=== PATIENT | male | born 1995 | race African-American/Black ===

== ENCOUNTER 2018-02-27 13:46 | Emergency (ER) | payer MEDICAID ==
[~2018-02-27] VITALS: Ht 182.9 cm; Wt 78.0 kg
[2018-02-27 14:01] VITALS: BP 128/80
== END 2018-02-27 14:54 | disposition home or self-care (01) ==
LOC: ER 13:46
DX: B34.9 Viral infection, unspecified (principal)
CPT/HCPCS: 93005